=== PATIENT | male | born 1955 | race Caucasian/White ===

== ENCOUNTER 2020-07-14 16:26 | Emergency (ER) | payer SELFPAY ==
[2020-07-14 16:52] VITALS: TEMP 98.9; BMI 24.3
[2020-07-14 20:21] LABS: BASO % 0.2 % (0-2.0); EOS % 0.2 % (0-4.5); HEMATOCRIT 42.9 % (35.4-49); HEMOGLOBIN 14.9 GM/dL (11.7-16.9); LYMPH % 23.4 % (8-40); MCH 34.2 pg (25.7-33.7); MCHC 34.7 g/dl (32.0-35.9); MEAN CELL VOLUME 98.7 fl (80-96); NEUT % 64.2 % (42.8-82.8); PLATELET COUNT 244 K/MM3 (134-434); RBC 4.35 M/mm3 (4.00-5.60); RDW 13.1 % (11.9-15.9); WHITE BLOOD COUNT 8.8 K/mm3 (4.0-10.0)
[2020-07-14 20:29] LABS: INR 1.03 (0.83-1.09); PROTHROMBIN TIME (PATIENT) 12.5 SEC (9.7-13.0)
[2020-07-14 20:32] LABS: ACTIVATED PTT 30.7 SECONDS (25.2-36.5)
[2020-07-14 20:37] LABS: CHLORIDE 101 mmol/L (98-107); SODIUM 138 mmol/L (136-145)
[2020-07-14 20:39] LABS: CALCIUM 8.9 mg/dL (8.5-10.1)
[2020-07-14 20:40] LABS: ALBUMIN 4.2 g/dl (3.4-5.0); ANION GAP 12 MMOL/L (8-16); BLOOD UREA NITROGEN 4.2 mg/dL (7-18); CO2 24 mmol/L (21-32); GLUCOSE,RANDOM 85 mg/dL (74-106); MAGNESIUM 1.7 mg/dL (1.8-2.4)
[2020-07-14 20:43] LABS: CREATININE 0.6 mg/dL (0.55-1.3); SGOT/AST 111 U/L (15-37); SGPT/ALT 98 U/L (13-61)
[2020-07-14 20:44] LABS: BILIRUBIN,TOTAL 0.7 mg/dL (0.2-1)
[2020-07-14 20:45] LABS: TOT PROT 7.5 g/dl (6.4-8.2)
[2020-07-14 20:46] LABS: ALK PHOS 89 U/L (45-117)
[2020-07-14] MEDS ORDERED: MAGNESIUM SULF 50% (8.12 MEQ/2 ML-1 GM VIAL) IVPB ONE (21:01)
[2020-07-14] MEDS ORDERED: MAGNESIUM SULFATE IN WATER 2 GM/50 ML IVPB IVPB ONE (21:14)
[2020-07-14 22:15] VITALS: BP 122/70; PULSE 83
== END 2020-07-14 22:15 | disposition home or self-care (01) ==
LOC: JER 16:26
PROC: 3E033GC Introduction of Other Therapeutic Substance into Peripheral Vein, Percutaneous Approach (ICD-10-PCS; principal; 2020-07-14)
DX: S09.90XA Unspecified injury of head, initial encounter (principal)
CPT/HCPCS: 36415; 70450-TC; 72125-TC; 80053; 83735; 84484; 85025; 85610; 85730; 86850; 86900; 86901; 93005; 93010; 99285-25

== ENCOUNTER 2021-03-15 12:55 | Emergency (ER) | payer OTHER ==
[2021-03-15 13:38] VITALS: BMI 25.0
[2021-03-15] MEDS ORDERED: DIPHTH,PERTUSS(ACELL),TET 0.5 ML DISP.SYRIN IM ONE ×2 (13:53→16:13)
[2021-03-15 15:08] LABS: BASO % 0.7 % (0-2.0); EOS % 1.5 % (0-4.5); HEMATOCRIT 42.1 % (35.4-49); HEMOGLOBIN 14.4 GM/dL (11.7-16.9); LYMPH % 41.1 % (8-40); MCH 33.5 pg (25.7-33.7); MCHC 34.2 g/dl (32.0-35.9); MEAN PLT VOLUME 7.7 fl (7.5-11.1); MONO % 12.7 % (3.8-10.2); PLATELET COUNT 141 10^3/uL (134-434); RDW 13.5 % (11.9-15.9); WHITE BLOOD COUNT 2.9 K/mm3 (4.0-10.0)
[2021-03-15 15:22] LABS: INR 0.98 (0.83-1.09); PROTHROMBIN TIME (PATIENT) 11.3 SEC (9.7-13.0)
[2021-03-15 15:25] LABS: ACTIVATED PTT 29.9 SECONDS (25.2-36.5)
[2021-03-15 15:44] LABS: ALBUMIN 3.8 g/dl (3.4-5.0); BLOOD UREA NITROGEN 6.5 mg/dL (7-18); CALCIUM 8.7 mg/dL (8.5-10.1)
[2021-03-15 15:47] LABS: CREATININE 0.7 mg/dL (0.55-1.3); PHOSPHOROUS 3.3 mg/dL (2.5-4.9)
[2021-03-15 15:49] LABS: BILIRUBIN,TOTAL 0.9 mg/dL (0.2-1)
[2021-03-15 17:51] VITALS: BP 119/70; PULSE 80; TEMP 98.2
== END 2021-03-15 17:51 | disposition home or self-care (01) ==
LOC: JER 12:55
PROC: 3E0234Z Introduction of Serum, Toxoid and Vaccine into Muscle, Percutaneous Approach (ICD-10-PCS; principal; 2021-03-15)
PROC: 0HQ0XZZ Repair Scalp Skin, External Approach (ICD-10-PCS; 2021-03-15)
DX: S01.01XA Laceration without foreign body of scalp, initial encounter (principal); S09.90XA Unspecified injury of head, initial encounter; F10.129 Alcohol abuse with intoxication, unspecified; V47.5XXA Car driver injured in collision with fixed or stationary object in traffic accident, initial encounter
CPT/HCPCS: 36415; 70450-TC; 71046-TC-FY; 72125-TC; 73610-TC-LT-FY; 73610-TC-RT-FY; 73630-TC-LT; 73630-TC-RT-FY; 80053; 80307; 83735; 84100; 85025; 85610; 85730; 90715; 93005; 93010; 99285-25; C9803; U0003; U0005

== ENCOUNTER 2023-04-18 12:04 | Inpatient (IN) | payer OTHER ==
[2023-04-18 12:12] VITALS: BMI 24.1
[2023-04-18] MEDS ORDERED: chlordiazePOXIDE HCL 25 MG CAPSULE ONE ×4 (14:00→21:46)
[2023-04-18 14:06] LABS: BASO % 0.2 % (0-2.0); HEMATOCRIT 48.8 % (35.4-49); LYMPH % 11.1 % (8-40); MCH 33.5 pg (25.7-33.7); MCHC 34.9 g/dl (32.0-35.9); MEAN CELL VOLUME 96.1 fl (80-96); MEAN PLT VOLUME 7.8 fl (7.5-11.1); MONO % 9.3 % (3.8-10.2); NEUT % 79.4 % (42.8-82.8); PLATELET COUNT 216 10^3/uL (134-434); RBC 5.08 M/mm3 (4.00-5.60); RDW 15.1 % (11.9-15.9); WHITE BLOOD COUNT 7.9 K/mm3 (4.0-10.0)
[2023-04-18] MEDS: SODIUM CHLORIDE 0.9% 500 ML INFUS.BAG IV ONE (14:06)
[2023-04-18] MEDS: chlordiazePOXIDE HCL 25 MG CAPSULE PO ONE ×4 (14:07→21:56)
[2023-04-18 14:20] LABS: POTASSIUM 4.4 mmol/L (3.5-5.1)
[2023-04-18 14:22] LABS: ALBUMIN 4.4 g/dl (3.4-5.0); CALCIUM 8.9 mg/dL (8.5-10.1); MAGNESIUM 1.4 mg/dL (1.8-2.4)
[2023-04-18 14:23] LABS: BLOOD UREA NITROGEN 15.3 mg/dL (7-18)
[2023-04-18 14:25] LABS: CREATININE 0.9 mg/dL (0.55-1.3)
[2023-04-18] MEDS ORDERED: MAGNESIUM SULF 50% (8.12 MEQ/2 ML-1 GM VIAL) ONE (15:11)
[2023-04-18] MEDS: MAGNESIUM SULFATE IN WATER 2 GM/50 ML IVPB IVPB ONE (15:25)
[2023-04-18] MEDS ORDERED: THIAMINE HCL 200 MG/2 ML VIAL ONE (23:47)
[2023-04-18] MEDS: FOLIC ACID INJECTION - 1 MG, THIAMINE HCL 100 MG, MULTIVIT INJECTION ADULT 10 ML in SOD... IVPB ONE (23:53)
[2023-04-18] MEDS: THIAMINE HCL 200 MG/2 ML VIAL IM SCH (23:53)
[2023-04-19] MEDS: ALBUTEROL SO4 HFA INHALER IH PRN (00:31)
[2023-04-19] MEDS ORDERED: ACETAMINOPHEN 325 MG TABLET (FP) ONE (01:23)
[2023-04-19] MEDS: ACETAMINOPHEN 325 MG TABLET (FP) PO ONE (01:25)
[2023-04-19] MEDS ORDERED: chlordiazePOXIDE HCL 25 MG CAPSULE ONE ×3 (03:25→13:50)
[2023-04-19] MEDS: chlordiazePOXIDE HCL 25 MG CAPSULE PO SCH ×2 (03:32→13:54)
[2023-04-19 08:37] LABS: BASO % 0.3 % (0-2.0); EOS % 1.1 % (0-4.5); HEMATOCRIT 41.5 % (35.4-49); HEMOGLOBIN 13.9 GM/dL (11.7-16.9); LYMPH % 32.2 % (8-40); MCH 32.6 pg (25.7-33.7); MCHC 33.6 g/dl (32.0-35.9); MEAN CELL VOLUME 97.1 fl (80-96); MEAN PLT VOLUME 8.6 fl (7.5-11.1); MONO % 13.8 % (3.8-10.2); NEUT % 52.6 % (42.8-82.8); PLATELET COUNT 134 10^3/uL (134-434); RBC 4.28 M/mm3 (4.00-5.60); RDW 14.4 % (11.9-15.9); WHITE BLOOD COUNT 5.9 K/mm3 (4.0-10.0)
[2023-04-19 09:51] LABS: POTASSIUM 3.8 mmol/L (3.5-5.1)
[2023-04-19 09:57] LABS: CALCIUM 8.2 mg/dL (8.5-10.1)
[2023-04-19 09:58] LABS: MAGNESIUM 1.7 mg/dL (1.8-2.4)
[2023-04-19 10:11] LABS: ALBUMIN 3.5 g/dl (3.4-5.0); BLOOD UREA NITROGEN 13.9 mg/dL (7-18)
[2023-04-19 10:13] LABS: CREATININE 0.7 mg/dL (0.55-1.3)
[2023-04-19 10:15] LABS: BILIRUBIN,TOTAL 2.1 mg/dL (0.2-1)
[2023-04-19 10:25] LABS: TOT PROT 5.9 g/dl (6.4-8.2)
[2023-04-19] MEDS: metoPROLOL SUCCINATE 25 MG TAB.SR.24H (FP) PO SCH (10:33)
[2023-04-19] MEDS: HEPARIN NA (PORCINE) 5,000 UNITS/ML 1ML VIAL SQ SCH (10:33)
[2023-04-20] MEDS ORDERED: ACETAMINOPHEN 325 MG TABLET (FP) PO PRN (15:27)
[2023-04-20 16:00] VITALS: BP 133/73; PULSE 89; RESP 18; TEMP 98.1
== END 2023-04-20 18:45 | disposition home or self-care (01) | DRG 309 ==
LOC: JER 12:04 → JERBED 13:50 → OBSVTOIN 22:15 → J4W 04-19 15:21
PROVIDERS: ADMIT Internal Medicine; ATTEND Internal Medicine
DX: I48.91 Unspecified atrial fibrillation (principal); F10.239 Alcohol dependence with withdrawal, unspecified; I48.92 Unspecified atrial flutter; I10 Essential (primary) hypertension; E86.0 Dehydration
CPT/HCPCS: 0241U-QW; 36415; 71045-TC-FY; 80053; 80061; 83735; 84443; 84484; 85025; 87081; 93005; 93010; 93306-TC; 99291; G0378; J1644